=== PATIENT | male | born 1990 | race African-American/Black ===

== ENCOUNTER 2018-11-05 00:40 | Emergency (ER) | payer OTHER ==
[2018-11-05] MEDS: LIDOCAINE/MYLANTA 40 ML BTL PO (01:54)
[2018-11-05] MEDS: FAMOTIDINE 20 MG TAB PO (01:54)
== END 2018-11-05 03:26 | disposition home or self-care (01) ==
LOC: FTE 00:40
DX: R04.2 Hemoptysis (principal); F17.200 Nicotine dependence, unspecified, uncomplicated
CPT/HCPCS: 71046; 99284-25